=== PATIENT | male | born 1955 | race Two or more races ===

== ENCOUNTER 2021-08-26 20:43 | Emergency (ER) | payer MEDICAID ==
[~2021-08-26] VITALS: Ht 165.1 cm; Wt 77.1 kg
[2021-08-26 23:12] VITALS: BP 135/81
[2021-08-26] MEDS ORDERED: methylPREDNISolone SOD SUCC 125 MG/2 ML VL IM ONE (23:30)
[2021-08-26] MEDS ORDERED: KETOROLAC TROMETH 60MG/2ML VIAL IM ONE (23:30)
[2021-08-27] MEDS ORDERED: HYDROcodone-ACET 10/325MG TAB PO ONE (00:30)
== END 2021-08-27 01:32 | disposition home or self-care (01) ==
LOC: ER 20:43
DX: M54.42 Lumbago with sciatica, left side (principal); M54.16 Radiculopathy, lumbar region; M79.18 Myalgia, other site; M79.605 Pain in left leg; I10 Essential (primary) hypertension
CPT/HCPCS: 96372; 99283; J1885

== ENCOUNTER 2021-09-02 15:24 | Emergency (ER) | payer MEDICAID ==
[~2021-09-02] VITALS: Ht 167.6 cm; Wt 77.1 kg
[2021-09-03] VITALS: BP 120/84
[2021-09-03] MEDS ORDERED: HYDROcodone-ACET 10/325MG TAB PO ONE (01:15)
== END 2021-09-03 02:02 | disposition home or self-care (01) ==
LOC: ER 15:24
DX: M54.16 Radiculopathy, lumbar region (principal); M54.42 Lumbago with sciatica, left side; M79.18 Myalgia, other site; M79.606 Pain in leg, unspecified; I10 Essential (primary) hypertension
CPT/HCPCS: 72170